=== PATIENT | male | born 1935 | race Caucasian/White ===

== ENCOUNTER 2021-02-21 23:07 | Emergency (ER) | payer MEDICARE ==
[~2021-02-21] VITALS: Ht 175.3 cm; Wt 76.2 kg
== END 2021-02-22 01:50 | disposition home or self-care (01) ==
LOC: ER 23:19
DX: R05.9 Cough, unspecified (principal); J18.9 Pneumonia, unspecified organism; J44.9 Chronic obstructive pulmonary disease, unspecified; Z20.822 Contact with and (suspected) exposure to COVID-19; F17.210 Nicotine dependence, cigarettes, uncomplicated
CPT/HCPCS: 71045; 99284; U0002